=== PATIENT | female | born 1975 | race Caucasian/White ===

== ENCOUNTER 2017-11-27 14:03 | Emergency (ER) | payer SELFPAY ==
[~2017-11-27] VITALS: Ht 162.6 cm; Wt 81.8 kg
[2017-11-27] MEDS ORDERED: LIDOCAINE HCL 5% TRANSDERMAL PATCH TD ONE (16:30)
[2017-11-27] MEDS ORDERED: METHOCARBAMOL 500 MG TABLET PO ONE (16:30)
[2017-11-27] MEDS ORDERED: ACETAMINOPHEN 500 MG TABLET PO ONE (16:45)
[2017-11-27 17:40] VITALS: BP 132/88
== END 2017-11-27 18:14 | disposition home or self-care (01) ==
LOC: EMS 14:05
DX: M54.6 Pain in thoracic spine (principal); V43.62XA Car passenger injured in collision with other type car in traffic accident, initial encounter; Y93.89 Activity, other specified; Y92.410 Unspecified street and highway as the place of occurrence of the external cause; Y99.8 Other external cause status
CPT/HCPCS: 72072; 99284